=== PATIENT | female | born 1995 | race Caucasian/White ===

== ENCOUNTER 2017-07-19 12:57 | Emergency (ER) | payer MEDICAID ==
[~2017-07-19] VITALS: Ht 172.7 cm; Wt 63.9 kg
[~2017-07-19 12:57] MED LIST: HYDR25TA11 PO; OLAN10TA3 PO; ZIPR20CA2 PO
[2017-07-19 14:20] LABS: HEMATOCRIT 53.1 % (34.6-47.8); WHITE BLOOD COUNT 11.8 x10^3/uL (3.4-10)
[2017-07-19 14:33] LABS: BLOOD UREA NITROGEN 8 mg/dL (7-18)
[2017-07-19 14:36] LABS: ASPARTATE AMINO TRANSFERASE 16 U/L (15-37)
[2017-07-19 14:54] LABS: HCG UR LOT HCG7030192
[2017-07-19 15:13] LABS: HCG UR OBC PASS
[2017-07-19] MEDS ORDERED: SODIUM CHLORIDE 0.9% 1,000 ML IV ONE (16:49)
[2017-07-19] MEDS ORDERED: SODIUM CHLORIDE 0.9% 1,000ML IVBOLUS ONE (17:00)
[2017-07-19] MEDS ORDERED: ONDANSETRON 2MG/ML, 2ML IVPush ONE (17:00)
[2017-07-19] MEDS ORDERED: MAALOX/HYOSCYAMINE/LIDOCAINE 45 ML BTL PO ONE (17:00)
[2017-07-19] MEDS ORDERED: SODIUM CHLORIDE FLUSH 10ML SYR IVF ONE (17:00)
[2017-07-19] MEDS ORDERED: MAALOX/HYOSCYAMINE/LIDOCAINE 45 ML BTL ONE (17:04)
[2017-07-19] MEDS ORDERED: ONDANSETRON 2MG/ML, 2ML ONE (17:04)
[2017-07-19 17:54] VITALS: BP 109/63
== END 2017-07-19 18:07 | disposition home or self-care (01) ==
LOC: ED 16:39
DX: E86.0 Dehydration (principal); F17.210 Nicotine dependence, cigarettes, uncomplicated
CPT/HCPCS: 36415; 76700; 80053; 81001; 81025; 83690; 85025; 87086; 96361; 96374; 99285; J2405; J7030

== ENCOUNTER 2017-07-20 18:54 | Emergency (ER) | payer MEDICAID ==
[~2017-07-20] VITALS: Ht 172.7 cm; Wt 63.5 kg
[2017-07-20] MEDS ORDERED: PROMETHAZINE 25 MG/ML, 1ML ONE (19:27)
[2017-07-20] MEDS ORDERED: ONDANSETRON 2MG/ML, 2ML ONE (19:28)
[2017-07-20] MEDS ORDERED: FAMOTIDINE 20 MG/2 ML ONE (19:28)
[2017-07-20] MEDS ORDERED: MAALOX/HYOSCYAMINE/LIDOCAINE 45 ML BTL PO ONE (19:30)
[2017-07-20] MEDS ORDERED: FAMOTIDINE 20 MG/2 ML IVP ONE (19:30)
[2017-07-20] MEDS ORDERED: ONDANSETRON 2MG/ML, 2ML IVPush ONE (19:30)
[2017-07-20] MEDS ORDERED: PROMETHAZINE 25 MG/ML, 1ML IM ONE (19:30)
[2017-07-20 19:46] LABS: HEMOGLOBIN 17.8 g/dL (11.7-16.4); WHITE BLOOD COUNT 10.7 x10^3/uL (3.4-10)
[2017-07-20 19:56] LABS: ASPARTATE AMINO TRANSFERASE 15 U/L (15-37); BLOOD UREA NITROGEN 7 mg/dL (7-18)
[2017-07-20] MEDS ORDERED: MAALOX/HYOSCYAMINE/LIDOCAINE 45 ML BTL ONE (20:03)
[2017-07-20] MEDS ORDERED: DICYCLOMINE 10 MG/ML, 2ML IM ONE (20:30)
[2017-07-20] MEDS ORDERED: DICYCLOMINE 10 MG/ML, 2ML ONE (20:32)
[2017-07-20 21:41] VITALS: BP 120/61
== END 2017-07-20 22:00 | disposition home or self-care (01) ==
LOC: ED 20:19
DX: R11.2 Nausea with vomiting, unspecified (principal); R32 Unspecified urinary incontinence
CPT/HCPCS: 36415; 80053; 81001; 83690; 85025; 96372; 96374; 96375; 99284; J0500; J2405; J2550; S0028

== ENCOUNTER 2018-04-15 21:07 | Emergency (ER) | payer SELFPAY ==
[~2018-04-15] VITALS: Ht 172.7 cm; Wt 57.3 kg
[2018-04-15 21:10] VITALS: BP 144/89
[2018-04-15] MEDS ORDERED: ACETAMINOPHEN 325 MG TABLET PO ONE (21:30)
[2018-04-15] MEDS ORDERED: ACETAMINOPHEN 325 MG TABLET ONE (21:31)
== END 2018-04-15 21:42 | disposition home or self-care (01) ==
LOC: ED 21:35
DX: L02.01 Cutaneous abscess of face (principal); F32.9 Major depressive disorder, single episode, unspecified; Z85.828 Personal history of other malignant neoplasm of skin
CPT/HCPCS: 99282

== ENCOUNTER 2018-06-23 08:53 | Inpatient (IN) | payer SELFPAY ==
[~2018-06-23] VITALS: Ht 172.7 cm; Wt 64.5 kg
[2018-06-23] MEDS ORDERED: RIFA300C3 PO (10:13)
[2018-06-23] MEDS ORDERED: SULF-169 PO (10:13)
[2018-06-23] MEDS ORDERED: SODIUM CHLORIDE 0.9% 1,000 ML IV ONE (10:16)
[2018-06-23] MEDS ORDERED: HYDROmorphone 2 MG/ML, 1ML ONE (10:20)
[2018-06-23] MEDS ORDERED: CEFTRIAXONE PMX 1GM/50ML 50 ML ONE (10:21)
[2018-06-23] MEDS ORDERED: ONDANSETRON 2MG/ML, 2ML ONE (10:21)
[2018-06-23] MEDS ORDERED: ONDANSETRON 2MG/ML, 2ML IVPush ONE (10:30)
[2018-06-23] MEDS ORDERED: CEFTRIAXONE 1,000 MG in SODIUM CHLORIDE 0.9% 50 ML IVPB ONE (10:30)
[2018-06-23] MEDS ORDERED: HYDROmorphone 2 MG/ML, 1ML IVPush PRN (10:30)
[2018-06-23] MEDS ORDERED: SODIUM CHLORIDE 0.9% 1,000ML IVBOLUS ONE (10:30)
[2018-06-23] MEDS ORDERED: SODIUM CHLORIDE FLUSH 10ML SYR IVF ONE ×2 (10:30)
[2018-06-23 10:53] LABS: ALBUMIN 3.6 g/dL (3.4-5.0); ANION GAP 9 mmol/L (5-15); CALCIUM 8.9 mg/dL (8.5-10.1); CHLORIDE 108 mmol/L (98-107); CREATININE 0.73 mg/dL (0.55-1.02)
[2018-06-23 11:40] LABS: BASOPHILS # (AUTO) 0.04 x10^3/uL (0-0.1); BASOPHILS % (AUTO) 0 % (0-1); EOSINOPHILS # (AUTO) 0.02 x10^3/uL (0-0.4); EOSINOPHILS % (AUTO) 0 % (1-7); LYMPHOCYTES # (AUTO) 2.01 x10^3/uL (1-3.4); LYMPHOCYTES % (AUTO) 17 % (22-44); MD NO; MEAN CORPUSCULAR HEMOGLOBIN 31.1 pg (27.0-34.8); MEAN CORPUSCULAR HGB CONC 34.6 g/dL (32.4-35.8); MEAN CORPUSCULAR VOLUME 89.8 fL (80-100); MEAN PLATELET VOLUME 7.5 fL (7.4-10.4); MONOCYTES % (AUTO) 9 % (2-9); NEUTROPHILS # (AUTO) 8.64 x10^3/uL (1.8-6.8); NEUTROPHILS % (AUTO) 74 % (42-75); PLATELET COUNT 326 x10^3/uL (130-400); RED BLOOD COUNT 4.71 x10^6/uL (3.82-5.3); RED CELL DISTRIBUTION WIDTH 13.5 % (9.6-15.2)
[2018-06-23] MEDS ORDERED: POLYETHYLENE GLYCOL 17 GM PACKET PO PRN (12:30)
[2018-06-23] MEDS ORDERED: DOCUSATE 100 MG CAPSULE PO PRN (12:30)
[2018-06-23] MEDS ORDERED: VANCOMYCIN PER PHARMACY MC PRN (12:30)
[2018-06-23] MEDS ORDERED: ACETAMINOPHEN 325 MG TABLET PO PRN (12:30)
[2018-06-23] MEDS: ENOXAPARIN 40 MG/0.4 ML SQ SCH (12:30)
[2018-06-23] MEDS ORDERED: PHARMACOKINETIC MONITORING MC PRN (13:30)
[2018-06-23] MEDS ORDERED: PHARMACOKINETIC CONSULTATION MC ONE (13:30)
[2018-06-23 13:37] VITALS: BP 114/73
[2018-06-23] MEDS: HYDROcodone/APAP 5/325 TABLET PO PRN ×3 (14:07→23:06)
[2018-06-23] MEDS: NS + 20MEQ KCL 1,000 ML IV SCH ×2 (14:09→23:19)
[2018-06-23] MEDS: NICOTINE 7 MG/24 HR PATCH.TD24 TD SCH (14:09)
[2018-06-23] MEDS: VANCOMYCIN PMX 1GM/200ML 200 ML IV SCH (14:10)
[2018-06-23 17:59] LABS: AMPHETAMINE SCREEN, URINE Positive (Negative); BARBITURATE SCREEN, URINE Negative (Negative); BENZODIAZEPINE SCREEN, URINE Negative (Negative); CANNABINOID SCREEN, URINE Positive (Negative); COCAINE SCREEN, URINE Negative (Negative); METHADONE SCREEN, URINE Negative (Negative); OPIATE SCREEN, URINE Positive (Negative)
[2018-06-23 18:17] LABS: CULTURE INDICATED? YES; MICROSCOPIC INDICATED
[2018-06-23 20:00] VITALS: BP 112/69
[2018-06-24 00:28] VITALS: BP 100/64
[2018-06-24] MEDS: VANCOMYCIN PMX 1GM/200ML 200 ML IV SCH ×2 (01:49→13:46)
[2018-06-24] MEDS: HYDROcodone/APAP 5/325 TABLET PO PRN ×4 (05:07→19:40)
[2018-06-24 08:10] VITALS: BP 115/75
[2018-06-24 08:18] LABS: BASOPHILS # (AUTO) 0.08 x10^3/uL (0-0.1); BASOPHILS % (AUTO) 1 % (0-1); EOSINOPHILS # (AUTO) 0.29 x10^3/uL (0-0.4); EOSINOPHILS % (AUTO) 3 % (1-7); LYMPHOCYTES # (AUTO) 3.14 x10^3/uL (1-3.4); LYMPHOCYTES % (AUTO) 27 % (22-44); MD NO; MEAN CORPUSCULAR HEMOGLOBIN 30.9 pg (27.0-34.8); MEAN CORPUSCULAR HGB CONC 33.8 g/dL (32.4-35.8); MEAN CORPUSCULAR VOLUME 91.4 fL (80-100); MEAN PLATELET VOLUME 7.2 fL (7.4-10.4); MONOCYTES # (AUTO) 0.92 x10^3/uL (0.2-0.8); MONOCYTES % (AUTO) 8 % (2-9); NEUTROPHILS # (AUTO) 7.39 x10^3/uL (1.8-6.8); NEUTROPHILS % (AUTO) 63 % (42-75); PLATELET COUNT 385 x10^3/uL (130-400); RED CELL DISTRIBUTION WIDTH 13.8 % (9.6-15.2)
[2018-06-24 08:28] LABS: ANION GAP 7 mmol/L (5-15); CALCIUM 8.4 mg/dL (8.5-10.1); CHLORIDE 106 mmol/L (98-107); CREATININE 0.81 mg/dL (0.55-1.02)
[2018-06-24] MEDS: ENOXAPARIN 40 MG/0.4 ML SQ SCH (12:27)
[2018-06-24 12:31] VITALS: BP 118/77
[2018-06-24] MEDS: NICOTINE 7 MG/24 HR PATCH.TD24 TD SCH (13:48)
[2018-06-24 20:00] VITALS: BP 102/60
[2018-06-25 02:00] VITALS: BP 99/59
[2018-06-25] MEDS: VANCOMYCIN PMX 1GM/200ML 200 ML IV SCH (02:00)
[2018-06-25] MEDS: HYDROcodone/APAP 5/325 TABLET PO PRN ×5 (02:01→19:38)
[2018-06-25 05:55] LABS: BASOPHILS % (AUTO) 1 % (0-1); EOSINOPHILS # (AUTO) 0.32 x10^3/uL (0-0.4); EOSINOPHILS % (AUTO) 2 % (1-7); LYMPHOCYTES # (AUTO) 3.06 x10^3/uL (1-3.4); LYMPHOCYTES % (AUTO) 22 % (22-44); MD NO; MEAN CORPUSCULAR HEMOGLOBIN 30.8 pg (27.0-34.8); MEAN CORPUSCULAR HGB CONC 33.9 g/dL (32.4-35.8); MEAN CORPUSCULAR VOLUME 90.8 fL (80-100); MEAN PLATELET VOLUME 6.8 fL (7.4-10.4); MONOCYTES # (AUTO) 0.92 x10^3/uL (0.2-0.8); MONOCYTES % (AUTO) 7 % (2-9); NEUTROPHILS # (AUTO) 9.65 x10^3/uL (1.8-6.8); NEUTROPHILS % (AUTO) 69 % (42-75); PLATELET COUNT 390 x10^3/uL (130-400); RED BLOOD COUNT 5.01 x10^6/uL (3.82-5.3); RED CELL DISTRIBUTION WIDTH 13.5 % (9.6-15.2)
[2018-06-25 08:44] VITALS: BP 110/69
[2018-06-25] MEDS: ENOXAPARIN 40 MG/0.4 ML SQ SCH (12:14)
[2018-06-25 12:40] VITALS: BP 115/73
[2018-06-25] MEDS ORDERED: GADOBUTROL 7.5 MMOL/7.5 ML PFS ONE (14:36)
[2018-06-25] MEDS: VANCOMYCIN 1,200 MG in SODIUM CHLORIDE 0.9% 250 ML IV SCH (14:37)
[2018-06-25] MEDS: NICOTINE 7 MG/24 HR PATCH.TD24 TD SCH (14:49)
[2018-06-25 21:15] VITALS: BP 104/69
[2018-06-26] MEDS: HYDROcodone/APAP 5/325 TABLET PO PRN ×4 (01:22→19:35)
[2018-06-26 02:00] VITALS: BP 108/68
[2018-06-26] MEDS: VANCOMYCIN 1,200 MG in SODIUM CHLORIDE 0.9% 250 ML IV SCH ×2 (02:14→15:45)
[2018-06-26 06:14] LABS: BASOPHILS # (AUTO) 0.13 x10^3/uL (0-0.1); BASOPHILS % (AUTO) 1 % (0-1); EOSINOPHILS # (AUTO) 0.45 x10^3/uL (0-0.4); EOSINOPHILS % (AUTO) 3 % (1-7); LYMPHOCYTES # (AUTO) 4.03 x10^3/uL (1-3.4); LYMPHOCYTES % (AUTO) 24 % (22-44); MD NO; MEAN CORPUSCULAR HEMOGLOBIN 30.8 pg (27.0-34.8); MEAN CORPUSCULAR VOLUME 90.8 fL (80-100); MEAN PLATELET VOLUME 6.9 fL (7.4-10.4); MONOCYTES # (AUTO) 1.02 x10^3/uL (0.2-0.8); MONOCYTES % (AUTO) 6 % (2-9); NEUTROPHILS # (AUTO) 11.56 x10^3/uL (1.8-6.8); NEUTROPHILS % (AUTO) 67 % (42-75); PLATELET COUNT 369 x10^3/uL (130-400); RED BLOOD COUNT 4.83 x10^6/uL (3.82-5.3); RED CELL DISTRIBUTION WIDTH 13.4 % (9.6-15.2)
[2018-06-26 06:26] LABS: ALBUMIN 3.2 g/dL (3.4-5.0); ANION GAP 8 mmol/L (5-15); CALCIUM 8.6 mg/dL (8.5-10.1); CHLORIDE 107 mmol/L (98-107)
[2018-06-26 06:30] LABS: ALANINE AMINOTRANSFERASE 44 U/L (12-78); ALKALINE PHOSPHATASE 104 U/L (45-117); BILIRUBIN,TOTAL 0.2 mg/dL (0.2-1.0); CREATININE 0.75 mg/dL (0.55-1.02); TOTAL PROTEIN 6.9 g/dL (6.4-8.2)
[2018-06-26 07:10] VITALS: BP 89/45
[2018-06-26] MEDS: AMPICILLIN/SULBACTAM 3 GM in SODIUM CHLORIDE 0.9% 100 ML IV SCH ×3 (09:33→22:15)
[2018-06-26] MEDS: KETOROLAC 30 MG/1 ML IVPush PRN ×3 (09:34→22:15)
[2018-06-26] MEDS: ENOXAPARIN 40 MG/0.4 ML SQ SCH (12:30)
[2018-06-26 13:00] VITALS: BP 98/61
[2018-06-26] MEDS: NICOTINE 7 MG/24 HR PATCH.TD24 TD SCH (15:45)
[2018-06-26 19:23] VITALS: BP 108/61
[2018-06-27 00:41] VITALS: BP 114/70
[2018-06-27] MEDS: VANCOMYCIN 1,200 MG in SODIUM CHLORIDE 0.9% 250 ML IV SCH ×2 (02:23→14:32)
[2018-06-27] MEDS: AMPICILLIN/SULBACTAM 3 GM in SODIUM CHLORIDE 0.9% 100 ML IV SCH ×4 (04:20→19:41)
[2018-06-27] MEDS: KETOROLAC 30 MG/1 ML IVPush PRN ×3 (05:00→19:40)
[2018-06-27 05:53] LABS: BASOPHILS # (AUTO) 0.12 x10^3/uL (0-0.1); BASOPHILS % (AUTO) 1 % (0-1); EOSINOPHILS # (AUTO) 0.34 x10^3/uL (0-0.4); EOSINOPHILS % (AUTO) 2 % (1-7); LYMPHOCYTES # (AUTO) 3.85 x10^3/uL (1-3.4); LYMPHOCYTES % (AUTO) 23 % (22-44); MD NO; MEAN CORPUSCULAR HEMOGLOBIN 30.5 pg (27.0-34.8); MEAN CORPUSCULAR HGB CONC 33.4 g/dL (32.4-35.8); MEAN CORPUSCULAR VOLUME 91.3 fL (80-100); MEAN PLATELET VOLUME 7.1 fL (7.4-10.4); MONOCYTES # (AUTO) 1.05 x10^3/uL (0.2-0.8); MONOCYTES % (AUTO) 6 % (2-9); NEUTROPHILS # (AUTO) 11.69 x10^3/uL (1.8-6.8); NEUTROPHILS % (AUTO) 69 % (42-75); PLATELET COUNT 372 x10^3/uL (130-400); RED BLOOD COUNT 4.62 x10^6/uL (3.82-5.3); RED CELL DISTRIBUTION WIDTH 13.7 % (9.6-15.2)
[2018-06-27] MEDS: ONDANSETRON 2MG/ML, 2ML IVPush PRN ×2 (06:14→14:30)
[2018-06-27 06:54] VITALS: BP 92/61
[2018-06-27 07:38] VITALS: BP 93/60
[2018-06-27] MEDS: LORazepam 2 MG/ML, 1ML IVPush PRN ×2 (09:21→19:41)
[2018-06-27 13:31] VITALS: BP 113/74
[2018-06-27] MEDS: HYDROcodone/APAP 5/325 TABLET PO PRN (14:29)
[2018-06-27] MEDS: ENOXAPARIN 40 MG/0.4 ML SQ SCH (14:32)
[2018-06-27] MEDS: NICOTINE 21 MG/24 HR PATCH.TD24 TD SCH (14:32)
[2018-06-27 19:03] VITALS: BP 121/70
[2018-06-28 00:26] VITALS: BP 117/77
[2018-06-28] MEDS: AMPICILLIN/SULBACTAM 3 GM in SODIUM CHLORIDE 0.9% 100 ML IV SCH ×4 (01:31→20:02)
[2018-06-28] MEDS: ONDANSETRON 2MG/ML, 2ML IVPush PRN ×4 (01:32→23:45)
[2018-06-28] MEDS: HYDROcodone/APAP 5/325 TABLET PO PRN ×4 (01:37→20:02)
[2018-06-28] MEDS: VANCOMYCIN 1,200 MG in SODIUM CHLORIDE 0.9% 250 ML IV SCH ×2 (02:31→14:40)
[2018-06-28] MEDS: KETOROLAC 30 MG/1 ML IVPush PRN ×4 (04:07→23:45)
[2018-06-28 05:01] LABS: BASOPHILS # (AUTO) 0.12 x10^3/uL (0-0.1); BASOPHILS % (AUTO) 1 % (0-1); EOSINOPHILS # (AUTO) 0.32 x10^3/uL (0-0.4); EOSINOPHILS % (AUTO) 2 % (1-7); LYMPHOCYTES # (AUTO) 3.51 x10^3/uL (1-3.4); LYMPHOCYTES % (AUTO) 22 % (22-44); MD NO; MEAN CORPUSCULAR HEMOGLOBIN 31.1 pg (27.0-34.8); MEAN CORPUSCULAR HGB CONC 34.1 g/dL (32.4-35.8); MEAN CORPUSCULAR VOLUME 91.1 fL (80-100); MONOCYTES # (AUTO) 1.16 x10^3/uL (0.2-0.8); MONOCYTES % (AUTO) 7 % (2-9); NEUTROPHILS # (AUTO) 10.63 x10^3/uL (1.8-6.8); NEUTROPHILS % (AUTO) 68 % (42-75); PLATELET COUNT 358 x10^3/uL (130-400); RED BLOOD COUNT 4.42 x10^6/uL (3.82-5.3); RED CELL DISTRIBUTION WIDTH 13.8 % (9.6-15.2)
[2018-06-28 05:07] LABS: ANION GAP 8 mmol/L (5-15); CHLORIDE 108 mmol/L (98-107); CREATININE 0.72 mg/dL (0.55-1.02)
[2018-06-28] MEDS: NICOTINE 21 MG/24 HR PATCH.TD24 TD SCH (08:11)
[2018-06-28 08:28] VITALS: BP 110/76
[2018-06-28] MEDS ORDERED: NICOTINE 14MG/24 HR PATCH.TD24 TD ONE (09:00)
[2018-06-28] MEDS: LORazepam 2 MG/ML, 1ML IVPush PRN ×2 (10:41→22:28)
[2018-06-28] MEDS: ENOXAPARIN 40 MG/0.4 ML SQ SCH (12:30)
[2018-06-28 14:00] VITALS: BP 130/70
[2018-06-28 19:39] VITALS: BP 121/67
[2018-06-29 00:35] VITALS: BP 115/73
[2018-06-29] MEDS: AMPICILLIN/SULBACTAM 3 GM in SODIUM CHLORIDE 0.9% 100 ML IV SCH ×2 (02:11→08:19)
[2018-06-29] MEDS: VANCOMYCIN 1,200 MG in SODIUM CHLORIDE 0.9% 250 ML IV SCH (02:51)
[2018-06-29] MEDS: HYDROcodone/APAP 5/325 TABLET PO PRN (03:40)
[2018-06-29 05:34] LABS: BASOPHILS # (AUTO) 0.13 x10^3/uL (0-0.1); BASOPHILS % (AUTO) 1 % (0-1); EOSINOPHILS # (AUTO) 0.38 x10^3/uL (0-0.4); EOSINOPHILS % (AUTO) 2 % (1-7); LYMPHOCYTES # (AUTO) 3.75 x10^3/uL (1-3.4); LYMPHOCYTES % (AUTO) 22 % (22-44); MD NO; MEAN CORPUSCULAR HEMOGLOBIN 30.3 pg (27.0-34.8); MEAN CORPUSCULAR HGB CONC 33.1 g/dL (32.4-35.8); MEAN CORPUSCULAR VOLUME 91.6 fL (80-100); MONOCYTES # (AUTO) 1.18 x10^3/uL (0.2-0.8); MONOCYTES % (AUTO) 7 % (2-9); NEUTROPHILS # (AUTO) 11.46 x10^3/uL (1.8-6.8); NEUTROPHILS % (AUTO) 68 % (42-75); PLATELET COUNT 375 x10^3/uL (130-400); RED BLOOD COUNT 4.56 x10^6/uL (3.82-5.3); RED CELL DISTRIBUTION WIDTH 13.6 % (9.6-15.2)
[2018-06-29] MEDS: ONDANSETRON 2MG/ML, 2ML IVPush PRN (06:25)
[2018-06-29] MEDS: KETOROLAC 30 MG/1 ML IVPush PRN (06:25)
[2018-06-29 06:49] VITALS: BP 145/96
[2018-06-29] MEDS: NICOTINE 21 MG/24 HR PATCH.TD24 TD SCH (08:19)
[2018-06-29] MEDS: LORazepam 2 MG/ML, 1ML IVPush PRN (08:24)
[2018-06-29] MEDS ORDERED: HYDROcodone/APAP 5/325 TABLET PO PRN (11:30)
[2018-06-29] MEDS: ENOXAPARIN 40 MG/0.4 ML SQ SCH (11:59)
== END 2018-06-29 12:45 | disposition left against medical advice (07) | DRG 872 ==
LOC: SUATTDRO 12:08 → ED 12:26 → 3NE 12:27
PROVIDERS: ADMIT Family Medicine; ATTEND Family Medicine
PROC: 0H9FXZZ Drainage of Right Hand Skin, External Approach (ICD-10-PCS; principal; 2018-06-26)
DX: A41.9 Sepsis, unspecified organism (principal); N39.0 Urinary tract infection, site not specified; E46 Unspecified protein-calorie malnutrition; F17.210 Nicotine dependence, cigarettes, uncomplicated; Z53.21 Procedure and treatment not carried out due to patient leaving prior to being seen by health care provider; L03.011 Cellulitis of right finger; Z85.828 Personal history of other malignant neoplasm of skin; Z86.14 Personal history of Methicillin resistant Staphylococcus aureus infection; Z88.6 Allergy status to analgesic agent; Z68.21 Body mass index [BMI] 21.0-21.9, adult
CPT/HCPCS: 36415; 80048; 80053; 80202; 80307; 81001; 82040; 83605; 83735; 84702; 85025; 87040; 87086; 93005; 93306; 96374; 96375; 99285; A9585; G0378; J0295; J0696; J1170; J1650; J1885; J2405; J3370; J3480; J2060; J7030; J7050